=== PATIENT | male | born 1990 | race Caucasian/White ===

== ENCOUNTER 2017-02-02 11:57 | Emergency (ER) | payer OTHER ==
[~2017-02-02 11:57] MED LIST: ALBUTEROL17 GM INH; DESYREL50 MG PO; NO MEDICATIONS; VISTARIL50 MG PO; VOLTAREN50 MG PO
== END 2017-02-02 13:57 | disposition home or self-care (01) ==
LOC: SED 11:57
DX: T40.1X1A Poisoning by heroin, accidental (unintentional), initial encounter (principal); J45.909 Unspecified asthma, uncomplicated; F17.200 Nicotine dependence, unspecified, uncomplicated
CPT/HCPCS: 99282